=== PATIENT | female | born 1950 | race Caucasian/White ===

== ENCOUNTER 2017-11-01 22:19 | Emergency (ER) | payer MEDICARE, OTHER ==
[~2017-11-01] VITALS: Ht 154.9 cm; Wt 40.8 kg
[~2017-11-01 22:19] MED LIST: ASPIR 8181 MG PO; ATORVASTATIN CA10 MG PO; B-12500 MCG PO; CARVEDILOL12.5 MG PO; COREG CR10 MG PO; FERROUS SULFATE 65MG PO; NIFEDICAL XL30 MG PO; PANTOPRAZOLE SO40 MG PO; STOOL SOFTENER100 MG PO; SYMBICORT 80-10.2 GM INH
[2017-11-01] MEDS ORDERED: LIDOCAINE PO (22:35)
[2017-11-01] MEDS ORDERED: NIFEDIPINE ER30 M1 PO (22:35)
[2017-11-01] MEDS ORDERED: ANORO IH (22:35)
[2017-11-01] MEDS ORDERED: LEVOTHYROXINE25 MCG PO (22:35)
[2017-11-01] MEDS ORDERED: PROCRIT INJECTION (22:35)
[2017-11-01 22:48] LABS: BASOPHILS % 0.1 % (0.0-1.0); EOSINOPHILS % 0.1 % (0.0-6.0); HEMATOCRIT 28.7 % (34.2-44.1); HEMOGLOBIN 9.6 g/dL (12.0-16.0); LYMPHOCYTES # (AUTO) 0.7 (1.0-3.2); LYMPHOCYTES % 4.6 % (18.0-39.1); MEAN CORPUSCULAR HGB CONC 33.4 g/dL (31-35); MEAN CORPUSCULAR VOLUME 95.7 fL (81-99); MONOCYTES # (AUTO) 0.8 (0.2-0.8); MONOCYTES % 5.3 % (4.4-11.3); NEUTROPHILS # (AUTO) 12.7 (2.1-6.9); NEUTROPHILS % 89.1 % (38.7-80.0); PLATELET COUNT 299 x10e3/uL (140-360); RED CELL DISTRIBUTION WIDTH 14.6 % (11.7-14.4)
[2017-11-01 22:57] LABS: INR 0.95; PROTHROMBIN TIME 13.6 seconds (11.9-14.5)
[2017-11-01 23:07] LABS: ALBUMIN 3.4 g/dL (3.5-5.0); ALBUMIN/GLOBULIN RATIO 0.9 (0.8-2.0); ALKALINE PHOSPHATASE 72 IU/L (40-150); ANION GAP 18.2 mmol/L (8-16); BLOOD UREA NITROGEN 57 mg/dL (7-26); BUN/CREATININE RATIO 16 (6-25); CALCIUM 9.6 mg/dL (8.4-10.2); CARBON DIOXIDE 19 mmol/L (22-29); CHLORIDE 100 mmol/L (98-107); CREATININE, SERUM 3.59 mg/dL (0.57-1.11); EST GLOMERULAR FILTRATION RATE 13 ML/MIN (60-); GLUCOSE 113 mg/dL (74-118); POTASSIUM 4.2 mmol/L (3.5-5.1); SODIUM 133 mmol/L (136-145)
[2017-11-01 23:09] LABS: ALANINE AMINOTRANSFERASE < 6 IU/L (0-55)
[2017-11-02 01:44] VITALS: BP 119/58
== END 2017-11-02 02:07 | disposition home or self-care (01) ==
LOC: ER 22:19
DX: K94.21 Gastrostomy hemorrhage (principal)
CPT/HCPCS: 36415; 80053; 85025; 85610; 85730; 86850; 86900; 99283

== ENCOUNTER 2020-04-22 17:22 | Emergency (ER) | payer MEDICARE, OTHER ==
[~2020-04-22] VITALS: Ht 154.9 cm; Wt 40.8 kg
[~2020-04-22 17:22] MED LIST changes: +ANORO IH; +LEVOTHYROXINE25 MCG PO; +LIDOCAINE PO; +NIFEDIPINE ER30 M1 PO; +PROCRIT INJECTION
[2020-04-22] MEDS ORDERED: PANTOPRAZOLE 40 MG 10ML VIAL IV STA (17:36)
[2020-04-22] MEDS ORDERED: SODIUM CHLORIDE 0.9% 100 ML ONE (18:19)
[2020-04-22] MEDS ORDERED: IOPAMIDOL 370 MG/ML 200 ML INFUS..BTL INJ ONE (18:20)
[2020-04-22 18:26] LABS: EOSINOPHILS # (AUTO) 0.1 (0.0-0.4); EOSINOPHILS % 1.9 % (0.0-6.0); HEMATOCRIT 30.5 % (34.2-44.1); HEMOGLOBIN 9.8 g/dL (12.0-16.0); LYMPHOCYTES # (AUTO) 0.7 (1.0-3.2); LYMPHOCYTES % 16.6 % (18.0-39.1); MEAN CORPUSCULAR HEMOGLOBIN 33.1 pg (28-32); MEAN CORPUSCULAR HGB CONC 32.1 g/dL (31-35); MONOCYTES # (AUTO) 0.5 (0.2-0.8); MONOCYTES % 11.5 % (4.4-11.3); NEUTROPHILS # (AUTO) 2.9 (2.1-6.9); NEUTROPHILS % 68.5 % (38.7-80.0); PLATELET COUNT 220 x10e3/uL (140-360); RED BLOOD COUNT 2.96 x10e6/uL (3.6-5.1); RED CELL DISTRIBUTION WIDTH 14.3 % (11.7-14.4)
[2020-04-22 18:45] LABS: ALANINE AMINOTRANSFERASE < 6 IU/L (0-55); ALBUMIN 3.5 g/dL (3.5-5.0); ALKALINE PHOSPHATASE 72 IU/L (40-150); ANION GAP 15.1 mmol/L (8-16); BLOOD UREA NITROGEN 31 mg/dL (7-26); BUN/CREATININE RATIO 5 (6-25); CALCIUM 8.1 mg/dL (8.4-10.2); CARBON DIOXIDE 22 mmol/L (22-29); CHLORIDE 104 mmol/L (98-107); CREATINE KINASE 15 IU/L (29-168); CREATININE, SERUM 6.13 mg/dL (0.57-1.11); EST GLOMERULAR FILTRATION RATE 7 ML/MIN (60-); GLUCOSE 95 mg/dL (74-118); POTASSIUM 4.1 mmol/L (3.5-5.1); SODIUM 137 mmol/L (136-145)
[2020-04-22 19:08] LABS: AMYLASE 53 U/L (25-125); LIPASE 37 U/L (8-78)
[2020-04-22 20:36] LABS: CREATINE KINASE MB 0.5 ng/mL (0-5.0)
[2020-04-22 20:59] VITALS: BP 169/75
== END 2020-04-22 21:01 | disposition home or self-care (01) ==
LOC: ER 17:41
DX: R07.89 Other chest pain (principal); I12.0 Hypertensive chronic kidney disease with stage 5 chronic kidney disease or end stage renal disease; N18.6 End stage renal disease; E78.5 Hyperlipidemia, unspecified; K21.9 Gastro-esophageal reflux disease without esophagitis; J44.9 Chronic obstructive pulmonary disease, unspecified; E03.9 Hypothyroidism, unspecified; Z85.818 Personal history of malignant neoplasm of other sites of lip, oral cavity, and pharynx; Z85.038 Personal history of other malignant neoplasm of large intestine; Z85.828 Personal history of other malignant neoplasm of skin
CPT/HCPCS: 36415; 71275; 80053; 82150; 82550; 82553; 83690; 84484; 85025; 93005; 99284; J7050; Q9967

== ENCOUNTER 2020-06-18 08:41 | Inpatient (IN) | payer MEDICARE, OTHER ==
[~2020-06-18] VITALS: Ht 157.5 cm; Wt 40.4 kg
[2020-06-18 10:47] LABS: BASOPHILS # (AUTO) 0.1 (0.0-0.1); BASOPHILS % 0.4 % (0.0-1.0); HEMATOCRIT 29.3 % (34.2-44.1); HEMOGLOBIN 9.8 g/dL (12.0-16.0); LYMPHOCYTES % 5.3 % (18.0-39.1); MEAN CORPUSCULAR HEMOGLOBIN 33.4 pg (28-32); MEAN CORPUSCULAR HGB CONC 33.4 g/dL (31-35); MONOCYTES # (AUTO) 0.7 (0.2-0.8); MONOCYTES % 3.6 % (4.4-11.3); NEUTROPHILS # (AUTO) 17.4 (2.1-6.9); NEUTROPHILS % 89.8 % (38.7-80.0); PLATELET COUNT 282 x10e3/uL (140-360); RED BLOOD COUNT 2.93 x10e6/uL (3.6-5.1); RED CELL DISTRIBUTION WIDTH 14.7 % (11.7-14.4)
[2020-06-18 10:59] LABS: CLARITY,URINE CLEAR (CLEAR); COLOR,URINE YELLOW (YELLOW); KETONES,URINE TRACE (NEGATIVE); LEUKOCYTE ESTERASE ,URINE NEGATIVE (NEGATIVE); NITRITE,URINE NEGATIVE (NEGATIVE); PROTEIN,URINE DIPSTICK >=300 (NEGATIVE)
[2020-06-18 11:00] LABS: EPITHELIAL CELLS,URINE FEW /LPF; RBC,URINE 0-5 /HPF (0-5); URINE UROBILINOGEN 0.2 mg/dL (0.2 - 1)
[2020-06-18 11:11] LABS: BACTERIA,URINE MANY /HPF; RENAL EPITHELIAL CELLS,URINE MODERATE; TRANSITIONAL EPI CELLS,URINE FEW; YEAST,URINE MANY
[2020-06-18 11:14] LABS: ALBUMIN 3.7 g/dL (3.5-5.0); ANION GAP 20.5 mmol/L (8-16); CALCIUM 9.7 mg/dL (8.4-10.2); CREATININE, SERUM 3.85 mg/dL (0.57-1.11); POTASSIUM 4.5 mmol/L (3.5-5.1)
[2020-06-18] MEDS ORDERED: IOPAMIDOL 370 MG/ML 200 ML INFUS..BTL INJ ONE (11:44)
[2020-06-18] MEDS ORDERED: SODIUM CHLORIDE 0.9% 50ML 50 ML ONE ×2 (11:44→18:51)
[2020-06-18] MEDS ORDERED: CEFTRIAXONE 1 GM in SODIUM CHLORIDE 0.9% 50ML 50 ML IV ONE (11:45)
[2020-06-18] MEDS ORDERED: CEFTRIAXONE SOD 1 GM/50 ML BAG IV ONE (11:45)
[2020-06-18] MEDS ORDERED: PREDNISONE20 MG PO (13:22)
[2020-06-18] MEDS ORDERED: FLONASE ALLERG9.9 ML INH (13:22)
[2020-06-18] MEDS ORDERED: PLAVIX75 MG PO (13:22)
[2020-06-18] MEDS ORDERED: ANORO ELLIPTA1 EACH INH (13:22)
[2020-06-18] MEDS ORDERED: ASPIRIN325 MG PO (13:59)
[2020-06-18] MEDS ORDERED: CEFTRIAXONE 1 GM VIAL ONE (18:51)
[2020-06-18 20:47] VITALS: BP 184/63
[2020-06-18] MEDS ORDERED: PIPER-TAZ 3.375 GM / NS 50ML IV SCH (21:00)
[2020-06-18] MEDS: NICOTINE 14 MG/EA PATCH TOP SCH (21:29)
[2020-06-18 21:34] VITALS: BP 184/63
[2020-06-18 21:35] VITALS: BP 184/63
[2020-06-18] MEDS ORDERED: SODIUM CHLORIDE 0.9% 250ML 250 ML ONE (22:53)
[2020-06-18] MEDS: PIPERACILLIN/TAZOBACTAM 3.375 GM in SODIUM CHLORIDE 0.9% 50ML 50 ML IV SCH (22:59)
[2020-06-18] MEDS ORDERED: HYDRALAZINE HCL 20 MG/ML VIAL IV PRN (23:00)
[2020-06-18] MEDS: ACETAMINOPHEN 325 MG TAB PO PRN (23:00)
[2020-06-18] MEDS ORDERED: ONDANSETRON HCL INJ 2MG/ML 2ML 2 MG/ML VIAL IV PRN (23:00)
[2020-06-19] VITALS (7 sets, daily range): BP systolic 127–175; BP diastolic 55–71
[2020-06-19] MEDS: ALBUTEROL/IPRATROPIUM 3 ML NEB NEB SCH ×4 (00:20→19:12)
[2020-06-19 05:13] LABS: BASOPHILS # (AUTO) 0.1 (0.0-0.1); EOSINOPHILS # (AUTO) 0.2 (0.0-0.4); EOSINOPHILS % 1.8 % (0.0-6.0); HEMATOCRIT 28.7 % (34.2-44.1); HEMOGLOBIN 9.3 g/dL (12.0-16.0); LYMPHOCYTES % 9.4 % (18.0-39.1); MEAN CORPUSCULAR HGB CONC 32.4 g/dL (31-35); MEAN CORPUSCULAR VOLUME 101.8 fL (81-99); MONOCYTES # (AUTO) 0.6 (0.2-0.8); MONOCYTES % 5.5 % (4.4-11.3); NEUTROPHILS # (AUTO) 8.5 (2.1-6.9); NEUTROPHILS % 81.6 % (38.7-80.0); PLATELET COUNT 275 x10e3/uL (140-360); RED BLOOD COUNT 2.82 x10e6/uL (3.6-5.1); RED CELL DISTRIBUTION WIDTH 15.1 % (11.7-14.4)
[2020-06-19 05:41] LABS: ANION GAP 17.4 mmol/L (8-16); CALCIUM 8.4 mg/dL (8.4-10.2); CREATININE, SERUM 4.73 mg/dL (0.57-1.11); POTASSIUM 4.4 mmol/L (3.5-5.1)
[2020-06-19 05:53] LABS: CHOL/HDL RATIO 3.4 (3.0-3.6)
[2020-06-19] MEDS: PANTOPRAZOLE SOD 40 MG TABEC PO SCH (09:05)
[2020-06-19] MEDS: NICOTINE 14 MG/EA PATCH TOP SCH (09:05)
[2020-06-19] MEDS: PIPERACILLIN/TAZOBACTAM 3.375 GM in SODIUM CHLORIDE 0.9% 50ML 50 ML IV SCH ×2 (09:05→21:00)
[2020-06-19] MEDS: LEVOTHYROXINE SODIUM 25 MCG TABLET PO SCH (09:05)
[2020-06-19] MEDS: ACETAMINOPHEN 325 MG TAB PO PRN ×2 (14:02→21:15)
[2020-06-20] VITALS (7 sets, daily range): BP systolic 110–160; BP diastolic 61–76
[2020-06-20] MEDS: ALBUTEROL/IPRATROPIUM 3 ML NEB NEB SCH ×4 (00:40→19:12)
[2020-06-20 06:48] LABS: ALBUMIN 3.4 g/dL (3.5-5.0); BILIRUBIN,DIRECT 0.1 mg/dL (0.0-0.5)
[2020-06-20 06:49] LABS: % IRON SATURATION 38 % (15-50); IRON 73 ug/dL (50-170); TOTAL IRON BINDING CAPACITY 192 ug/dL (261-478); TRANSFERRIN 137 mg/dL (180-382)
[2020-06-20] MEDS: PIPERACILLIN/TAZOBACTAM 3.375 GM in SODIUM CHLORIDE 0.9% 50ML 50 ML IV SCH ×2 (09:08→21:09)
[2020-06-20] MEDS: PANTOPRAZOLE SOD 40 MG TABEC PO SCH (09:08)
[2020-06-20] MEDS: CLOPIDOGREL BISULFATE 75 MG TAB PO SCH (09:08)
[2020-06-20] MEDS: NICOTINE 14 MG/EA PATCH TOP SCH (09:08)
[2020-06-20] MEDS: LEVOTHYROXINE SODIUM 25 MCG TABLET PO SCH (09:08)
[2020-06-20] MEDS: ACETAMINOPHEN 325 MG TAB PO PRN (15:20)
[2020-06-21] VITALS (8 sets, daily range): BP systolic 102–179; BP diastolic 58–72
[2020-06-21] MEDS: ALBUTEROL/IPRATROPIUM 3 ML NEB NEB SCH ×4 (00:39→18:55)
[2020-06-21 05:18] LABS: BASOPHILS # (AUTO) 0.1 (0.0-0.1); BASOPHILS % 0.8 % (0.0-1.0); EOSINOPHILS # (AUTO) 0.2 (0.0-0.4); HEMATOCRIT 26.9 % (34.2-44.1); HEMOGLOBIN 8.8 g/dL (12.0-16.0); LYMPHOCYTES # (AUTO) 0.7 (1.0-3.2); LYMPHOCYTES % 6.1 % (18.0-39.1); MEAN CORPUSCULAR HEMOGLOBIN 33.1 pg (28-32); MEAN CORPUSCULAR HGB CONC 32.7 g/dL (31-35); MEAN CORPUSCULAR VOLUME 101.1 fL (81-99); MONOCYTES # (AUTO) 0.8 (0.2-0.8); MONOCYTES % 6.8 % (4.4-11.3); NEUTROPHILS # (AUTO) 9.4 (2.1-6.9); NEUTROPHILS % 83.2 % (38.7-80.0); PLATELET COUNT 269 x10e3/uL (140-360); RED BLOOD COUNT 2.66 x10e6/uL (3.6-5.1); RED CELL DISTRIBUTION WIDTH 15.3 % (11.7-14.4)
[2020-06-21 06:01] LABS: ALBUMIN 3.2 g/dL (3.5-5.0); ANION GAP 18.5 mmol/L (8-16); BILIRUBIN,DIRECT 0.1 mg/dL (0.0-0.5); CALCIUM 8.3 mg/dL (8.4-10.2); CREATININE, SERUM 6.24 mg/dL (0.57-1.11); POTASSIUM 4.5 mmol/L (3.5-5.1)
[2020-06-21] MEDS ORDERED: ONDANSETRON HCL 4 MG ORAL DISINTEGRATING TAB PO PRN (08:00)
[2020-06-21] MEDS: LEVOTHYROXINE SODIUM 25 MCG TABLET PO SCH (09:44)
[2020-06-21] MEDS: NICOTINE 14 MG/EA PATCH TOP SCH (09:44)
[2020-06-21] MEDS: CLOPIDOGREL BISULFATE 75 MG TAB PO SCH (09:44)
[2020-06-21] MEDS: PANTOPRAZOLE SOD 40 MG TABEC PO SCH (09:44)
[2020-06-21] MEDS: PIPERACILLIN/TAZOBACTAM 3.375 GM in SODIUM CHLORIDE 0.9% 50ML 50 ML IV SCH ×2 (09:44→21:18)
[2020-06-21] MEDS ORDERED: SODIUM CHLORIDE 0.9% 250ML 250 ML ONE (09:50)
[2020-06-21] MEDS ORDERED: SODIUM CHLORIDE 0.9% 1000ML 2,000 ML ONE (12:55)
[2020-06-21] MEDS: ACETAMINOPHEN 325 MG TAB PO PRN (19:32)
[2020-06-21] MEDS ORDERED: CLONIDINE HCL 0.1 MG TAB PO PRN (21:15)
[2020-06-22] VITALS (7 sets, daily range): BP systolic 108–143; BP diastolic 59–90
[2020-06-22] MEDS: ALBUTEROL/IPRATROPIUM 3 ML NEB NEB SCH ×4 (01:30→19:15)
[2020-06-22 05:00] LABS: BASOPHILS # (AUTO) 0.1 (0.0-0.1); BASOPHILS % 0.9 % (0.0-1.0); EOSINOPHILS # (AUTO) 0.2 (0.0-0.4); EOSINOPHILS % 1.5 % (0.0-6.0); HEMATOCRIT 27.5 % (34.2-44.1); HEMOGLOBIN 8.8 g/dL (12.0-16.0); LYMPHOCYTES # (AUTO) 0.7 (1.0-3.2); LYMPHOCYTES % 5.8 % (18.0-39.1); MEAN CORPUSCULAR HEMOGLOBIN 32.6 pg (28-32); MEAN CORPUSCULAR VOLUME 101.9 fL (81-99); MONOCYTES # (AUTO) 0.8 (0.2-0.8); MONOCYTES % 6.9 % (4.4-11.3); NEUTROPHILS # (AUTO) 9.9 (2.1-6.9); PLATELET COUNT 271 x10e3/uL (140-360); RED CELL DISTRIBUTION WIDTH 15.4 % (11.7-14.4)
[2020-06-22 05:20] LABS: ANION GAP 16.5 mmol/L (8-16); CALCIUM 9.3 mg/dL (8.4-10.2); CREATININE, SERUM 3.53 mg/dL (0.57-1.11); POTASSIUM 4.5 mmol/L (3.5-5.1)
[2020-06-22] MEDS: CLOPIDOGREL BISULFATE 75 MG TAB PO SCH (08:47)
[2020-06-22] MEDS: PIPERACILLIN/TAZOBACTAM 3.375 GM in SODIUM CHLORIDE 0.9% 50ML 50 ML IV SCH ×2 (08:47→20:48)
[2020-06-22] MEDS: LEVOTHYROXINE SODIUM 25 MCG TABLET PO SCH (08:47)
[2020-06-22] MEDS: NICOTINE 14 MG/EA PATCH TOP SCH (09:40)
[2020-06-23] VITALS (8 sets, daily range): BP systolic 118–191; BP diastolic 62–88
[2020-06-23] MEDS: ACETAMINOPHEN 325 MG TAB PO PRN (02:00)
[2020-06-23 05:02] LABS: BASOPHILS # (AUTO) 0.1 (0.0-0.1); BASOPHILS % 0.5 % (0.0-1.0); EOSINOPHILS % 0.1 % (0.0-6.0); HEMATOCRIT 26.7 % (34.2-44.1); HEMOGLOBIN 8.7 g/dL (12.0-16.0); LYMPHOCYTES # (AUTO) 0.4 (1.0-3.2); LYMPHOCYTES % 1.8 % (18.0-39.1); MEAN CORPUSCULAR HEMOGLOBIN 33.1 pg (28-32); MEAN CORPUSCULAR HGB CONC 32.6 g/dL (31-35); MEAN CORPUSCULAR VOLUME 101.5 fL (81-99); MONOCYTES # (AUTO) 0.7 (0.2-0.8); MONOCYTES % 3.8 % (4.4-11.3); NEUTROPHILS # (AUTO) 17.6 (2.1-6.9); NEUTROPHILS % 92.6 % (38.7-80.0); PLATELET COUNT 311 x10e3/uL (140-360); RED BLOOD COUNT 2.63 x10e6/uL (3.6-5.1); RED CELL DISTRIBUTION WIDTH 15.2 % (11.7-14.4)
[2020-06-23] MEDS: LEVOTHYROXINE SODIUM 25 MCG TABLET PO SCH (05:55)
[2020-06-23] MEDS: ALBUTEROL/IPRATROPIUM 3 ML NEB NEB SCH ×3 (07:06→19:25)
[2020-06-23] MEDS: NICOTINE 14 MG/EA PATCH TOP SCH (08:45)
[2020-06-23] MEDS: CLOPIDOGREL BISULFATE 75 MG TAB PO SCH (08:45)
[2020-06-23] MEDS ORDERED: ACETAMINOPHEN/CODEINE 300MG - 30MG TAB PO PRN (08:45)
[2020-06-23] MEDS: PIPERACILLIN/TAZOBACTAM 3.375 GM in SODIUM CHLORIDE 0.9% 50ML 50 ML IV SCH ×2 (08:45→20:10)
[2020-06-23] MEDS ORDERED: IOPAMIDOL 370 MG/ML 200 ML INFUS..BTL INJ ONE ×2 (09:49→10:29)
[2020-06-23] MEDS ORDERED: SODIUM CHLORIDE 0.9% 50ML 50 ML ONE ×2 (09:49→10:29)
[2020-06-23] MEDS ORDERED: LIDOCAINE HCL 4% 50 ML BTL ONE (12:08)
[2020-06-23] MEDS ORDERED: ACETYLCYSTEINE 200 MG/ML 4ML VIAL ONE (12:08)
[2020-06-23] MEDS ORDERED: OXYMETAZOLINE HCL 0.05% NAS 1 SPRAY BTL ONE (12:08)
[2020-06-23] MEDS ORDERED: PROPOFOL IV EMULSION 10 MG/ML 20 ML VIAL ONE (13:53)
[2020-06-23] MEDS ORDERED: SEVOFLURANE INHAL SOLN 250 ML PEN BTL ONE (13:53)
[2020-06-23] MEDS ORDERED: POVIDONE IODINE 0.05% 0.05 % ML PO ONE (13:53)
[2020-06-23] MEDS ORDERED: HYDRALAZINE HCL 20 MG/ML VIAL ONE (15:03)
[2020-06-23] MEDS: METHYLPREDNISOLONE SOD SUCC 40 MG/ML VIAL 1ML IV SCH ×2 (15:16→20:10)
[2020-06-23] MEDS ORDERED: SODIUM CHLORIDE 0.9% 1000ML 1,000 ML ONE (17:06)
[2020-06-24] VITALS: BP 110/63
[2020-06-24] MEDS: ALBUTEROL/IPRATROPIUM 3 ML NEB NEB SCH ×3 (01:10→13:00)
[2020-06-24 04:00] VITALS: BP 105/55
[2020-06-24 05:07] LABS: BASOPHILS # (AUTO) 0.1 (0.0-0.1); BASOPHILS % 0.4 % (0.0-1.0); HEMATOCRIT 25.9 % (34.2-44.1); HEMOGLOBIN 7.9 g/dL (12.0-16.0); LYMPHOCYTES # (AUTO) 0.4 (1.0-3.2); LYMPHOCYTES % 2.1 % (18.0-39.1); MEAN CORPUSCULAR HEMOGLOBIN 32.9 pg (28-32); MEAN CORPUSCULAR HGB CONC 30.5 g/dL (31-35); MEAN CORPUSCULAR VOLUME 107.9 fL (81-99); MONOCYTES # (AUTO) 0.5 (0.2-0.8); MONOCYTES % 2.4 % (4.4-11.3); NEUTROPHILS # (AUTO) 17.3 (2.1-6.9); NEUTROPHILS % 93.7 % (38.7-80.0); PLATELET COUNT 285 x10e3/uL (140-360); RED CELL DISTRIBUTION WIDTH 15.8 % (11.7-14.4)
[2020-06-24] MEDS: METOCLOPRAMIDE HCL 10 MG/2ML VIAL IV SCH ×2 (05:13→12:24)
[2020-06-24] MEDS: LEVOTHYROXINE SODIUM 25 MCG TABLET PO SCH (05:13)
[2020-06-24 05:23] LABS: CALCIUM 9.3 mg/dL (8.4-10.2); CREATININE, SERUM 3.18 mg/dL (0.57-1.11)
[2020-06-24 07:40] VITALS: BP 114/56
[2020-06-24 08:49] VITALS: BP 114/56
[2020-06-24] MEDS: PIPERACILLIN/TAZOBACTAM 3.375 GM in SODIUM CHLORIDE 0.9% 50ML 50 ML IV SCH (09:00)
[2020-06-24] MEDS: NICOTINE 14 MG/EA PATCH TOP SCH (09:00)
[2020-06-24] MEDS: CLOPIDOGREL BISULFATE 75 MG TAB PO SCH (09:00)
[2020-06-24] MEDS: METHYLPREDNISOLONE SOD SUCC 40 MG/ML VIAL 1ML IV SCH (09:00)
[2020-06-24 09:09] LABS: PLATELET ESTIMATE ADEQUATE; PLATELET MORPHOLOGY COMMENT NORMAL
[2020-06-24] MEDS ORDERED: ACETYLCYSTEINE 200 MG/ML 4ML VIAL INH SCH (11:00)
[2020-06-24 11:43] VITALS: BP 104/51
[2020-06-24] MEDS ORDERED: PREDNISONE20 MG PO (15:09)
[2020-06-24 15:47] VITALS: BP 119/58
== END 2020-06-24 17:58 | disposition home or self-care (01) | DRG 180 ==
LOC: ER 09:29 → ERHOLD 13:53 → MED/SURG2 19:25
PROVIDERS: ADMIT Internal Medicine; ATTEND Internal Medicine
PROC: 5A1D70Z Performance of Urinary Filtration, Intermittent, Less than 6 Hours Per Day (ICD-10-PCS; principal; 2020-06-21)
PROC: 0BJ08ZZ Inspection of Tracheobronchial Tree, Via Natural or Artificial Opening Endoscopic (ICD-10-PCS; 2020-06-23)
PROC: 0B978ZZ Drainage of Left Main Bronchus, Via Natural or Artificial Opening Endoscopic (ICD-10-PCS; 2020-06-23)
PROC: 0B928ZZ Drainage of Carina, Via Natural or Artificial Opening Endoscopic (ICD-10-PCS; 2020-06-23)
PROC: 0B9J8ZX Drainage of Left Lower Lung Lobe, Via Natural or Artificial Opening Endoscopic, Diagnostic (ICD-10-PCS; 2020-06-23)
DX: C34.90 Malignant neoplasm of unspecified part of unspecified bronchus or lung (principal); N18.6 End stage renal disease; J96.21 Acute and chronic respiratory failure with hypoxia; K85.10 Biliary acute pancreatitis without necrosis or infection; J18.9 Pneumonia, unspecified organism; E43 Unspecified severe protein-calorie malnutrition; R04.2 Hemoptysis; I12.0 Hypertensive chronic kidney disease with stage 5 chronic kidney disease or end stage renal disease; J44.0 Chronic obstructive pulmonary disease with (acute) lower respiratory infection; Z68.1 Body mass index [BMI] 19.9 or less, adult; I10 Essential (primary) hypertension; Z85.038 Personal history of other malignant neoplasm of large intestine; Z85.01 Personal history of malignant neoplasm of esophagus; Z99.2 Dependence on renal dialysis; R63.6 Underweight; Z20.822 Contact with and (suspected) exposure to COVID-19
CPT/HCPCS: 31622; 36415; 71045; 71260; 74177; 74181; 80048; 80053; 80061; 80076; 81001; 82150; 82607; 82746; 83540; 83630; 83690; 83880; 83970; 83993; 84443; 84466; 84484; 85014; 85025; 85045; 86301; 86705; 86706; 87045; 87086; 87205; 87335; 87340; 88112; 88305; 88312; 90962; 93005; 94640; 96360; 97139; 99251; 99284; J0360; J0696; J2543; J2765; J2920; J7030; J7050; Q0162; Q9967; U0002